=== PATIENT | female | born 1975 | race Caucasian/White ===

== ENCOUNTER → 2017-10-19 | Day surgery (SDC) | payer BC ==
[~2017-10-19] MED LIST: LACTATED RINGER'S 1000 ML INJ 1,000 ML ONE; PROPOFOL 500 MG/50 ML BTL IV ONE
--- NOTE | 2017-10-19 09:40 | GIPROC ---
[facility] [address] [facility], [address] EGD PROCEDURE REPORT EXAM DATE: 10/19/2017 PATIENT NAME: Viktor Washburn MR #: [id number] BIRTHDATE: 1975 ATTENDING: Colin Pham MD ORDER #: [id number] [employer] DIRECTOR: none STATUS: outpatient INDICATIONS: The patient is a 41 yr old female here for an EGD due to follow up on ulcer and history of esophageal reflux. Hx of egd 4 years ago. PROCEDURE PERFORMED: EGD w/ biopsy MEDICATIONS: None and Per Anesthesia. TOPICAL ANESTHETIC: none CONSENT: The patient understands the risks and benefits of the procedure and understands that these risks include, but are not limited to: sedation, allergic reaction, infection, perforation and/or bleeding. Alternative means of evaluation and treatment include, among others: physical exam, x-rays, and/or surgical intervention. The patient elects to proceed with this endoscopic procedure. medical equipment was checked for proper function. Hand hygiene and appropriate measures for infection prevention was taken. After the risks, benefits and alternatives of the procedure were thoroughly explained, Informed consent was verified, confirmed and timeout was successfully executed by the treatment team. The patient was anesthetized with topical anesthesia and the EC-2990i ([id number]) endoscope was introduced through the mouth and advanced to the second portion of the duodenum. Retroflexed views revealed no abnormalities The gastroscope was then slowly withdrawn and removed. No evidence of ulcer . ADVERSE EVENTS: There were no complications. IMPRESSIONS: Retroflexed views revealed no abnormalities RECOMMENDATIONS: Await biopsy results. Biopsy results will not be ready for 7-10 days. If you don't hear from us in two weeks, call our office for biopsy results. PATIENT CONDITION: fair DISPOSITION: Home REPEAT EXAM: NONE Colin Pham MD eSigned: Colin Pham MD 10/19/2017 9:39 AM cc: Colin Pham MD
== END | disposition home or self-care (01) ==
LOC: ESDC 07:58
PROVIDERS: ATTEND Surgery
DX: K21.9 Gastro-esophageal reflux disease without esophagitis (principal); K25.9 Gastric ulcer, unspecified as acute or chronic, without hemorrhage or perforation
CPT/HCPCS: 00731; 43239; 88305; J3010; J7120

== ENCOUNTER 2017-12-11 05:43 | Inpatient (IN) | payer BC ==
[~2017-12-11] VITALS: Ht 162.6 cm; Wt 117.3 kg
[2017-12-11] MEDS ORDERED: METOPROLOL TARTRATE 25 MG TAB PO PRN (06:00)
[2017-12-11] MEDS ORDERED: SODIUM CHLORID 0.9% 500 ML IV PRN (06:00)
[2017-12-11] MEDS ORDERED: POVIDONE IODINE 5% (ANTISEPSIS KIT) 4 APPLICATIONS EACH NARE PRN (06:00)
[2017-12-11] MEDS ORDERED: CHLORHEXIDINE GLUCONATE 2 % 1 PACK (2 CLOTHS) TOPICAL PRN (06:00)
[2017-12-11] MEDS ORDERED: LACTATED RINGER'S 1000 ML IV PRN (06:00)
[2017-12-11] MEDS ORDERED: CETI-1 PO (06:12)
[2017-12-11] MEDS ORDERED: METF500T4 PO (06:12)
[2017-12-11] MEDS ORDERED: ONDANSETRON HCL 4 MG/2 ML VIAL IV PUSH SCH (06:15)
[2017-12-11] MEDS ORDERED: APREPITANT 40 MG CAP PO SCH (06:15)
[2017-12-11] MEDS ORDERED: ceFAZolin 2 GM PREMIX 50 ML IV SCH (06:15)
[2017-12-11] MEDS ORDERED: ACETAMINOPHEN 1000 MG/100 ML 100 ML IV SCH (06:15)
[2017-12-11] MEDS ORDERED: SCOPOLAMINE 1.5 MG PATCH T-DERMAL SCH (06:15)
[2017-12-11] MEDS ORDERED: BUPIVACAINE/EPINEPHRINE 0.25% PF 10 ML VIAL ONE (06:29)
--- NOTE | 2017-12-11 09:43 | HHI.PR ---
Immediate Post Op Note Procedure Date: Dec 11, 2017 Pre Op Diagnosis: morbid obesity, bmi 44, hypercholestremia, gerd, PreDM, RA Post Op Diagnosis: same Surgeon: Colin Pham MD Hand Tufter(s): Dr. Delatorre Procedure: lap RYGB Findings: no leak with methylene blue, redundant GJ tissue resected Complications: none Specimen(s) removed: none Estimated blood loss: 10cc Anesthesia: General Drains: None Patient to: PACU Patient Condition: Good Colin Pham MD Dec 11, 2017 09:43
[2017-12-11] MEDS ORDERED: diphenhydrAMINE HCL ELIXIR 12.5 MG/5 ML CUP PO PRN (09:45)
[2017-12-11] MEDS ORDERED: ONDANSETRON HCL 4 MG/2 ML VIAL IV PUSH PRN (09:45)
[2017-12-11] MEDS ORDERED: ACETAMINOPHEN 325MG/HYDROcodone 7.5MG/15ML UDC PO PRN ×2 (09:45)
[2017-12-11] MEDS ORDERED: Post-op Orders (for Pharmacy) OTHER ONE (09:45)
[2017-12-11] MEDS ORDERED: SODIUM CHLORIDE 0.9% FLUSH 10 ML FLUSH IV FLUSH PRN (09:45)
[2017-12-11] MEDS ORDERED: diphenhydrAMINE HCL 50 MG/ML VIAL IV PUSH PRN (09:45)
[2017-12-11] MEDS ORDERED: ENALAPRILAT 1.25 MG/ML VIAL IV PUSH PRN (09:45)
[2017-12-11] MEDS ORDERED: DO NOT ADM ANY ANTICOAGULANT DRUGS PRN (09:58)
[2017-12-11] MEDS ORDERED: METOCLOPRAMIDE HCL 10 MG/2 ML VIAL ONE (10:16)
[2017-12-11] MEDS ORDERED: metroNIDAZOLE 500 MG INJ 100 ML IV ONE (10:20)
[2017-12-11] MEDS ORDERED: MIDAZOLAM HCL 2 MG/2 ML VIAL ONE (10:24)
[2017-12-11] MEDS ORDERED: MORPHINE SULFATE 4 MG/ML INJ ONE (10:24)
[2017-12-11] MEDS: D5-1/2 NS + KCL 20 MEQ INJ 1,000 ML IV SCH ×2 (10:30→18:38)
[2017-12-11] MEDS ORDERED: METOCLOPRAMIDE HCL 10 MG/2 ML VIAL IV PUSH SCH (11:00)
[2017-12-11] MEDS ORDERED: metroNIDAZOLE 500 MG INJ 100 ML IV SCH (11:00)
[2017-12-11] MEDS: ACETAMINOPHEN 1000 MG/100 ML 100 ML IV SCH ×2 (11:34→18:28)
[2017-12-11] MEDS ORDERED: ePHEDrine/NS 25 MG/5 ML SYRINGE IV ONE (12:00)
[2017-12-11] MEDS ORDERED: NEOSTIGMINE 5 MG/5 ML SYRINGE IV PUSH ONE (12:00)
[2017-12-11] MEDS ORDERED: PHENYLEPH/NS 1000 MCG/10 ML SYR IV ONE (12:00)
[2017-12-11] MEDS ORDERED: GLYCOPYRROLATE 1 MG/5 ML SYRINGE IV PUSH ONE (12:00)
[2017-12-11] MEDS ORDERED: LACTATED RINGER'S 1000 ML INJ 1,000 ML IV ONE (12:00)
[2017-12-11] MEDS ORDERED: ROCURONIUM INJ 50 MG/5 ML SYRINGE IV PUSH ONE (12:00)
[2017-12-11] MEDS ORDERED: PROPOFOL 200 MG/20 ML AMP IV ONE (12:00)
[2017-12-11] MEDS ORDERED: LIDOCAINE HCL 1% PF 5 ML SYRINGE OTHER ONE (12:00)
[2017-12-11 12:57] VITALS: BP 124/79; PULSE 72; RESP 18; TEMP 96.7; O2SAT 100
[2017-12-11] MEDS: PANTOPRAZOLE SOD 40 MG DELAYED RELEASE TAB PO SCH (16:02)
[2017-12-11] MEDS: METOCLOPRAMIDE HCL 10 MG/2 ML VIAL IV PUSH SCH ×2 (16:03→20:16)
[2017-12-11 16:44] VITALS: O2SAT 98
[2017-12-11] MEDS: metroNIDAZOLE 500 MG INJ 100 ML IV SCH (16:47)
[2017-12-11 20:00] VITALS: BP 123/74; PULSE 70; RESP 18; TEMP 98.7; O2SAT 98
[2017-12-11] MEDS: SODIUM CHLORIDE 0.9% FLUSH 10 ML FLUSH IV FLUSH SCH (21:00)
[2017-12-12] VITALS: BP 128/73; PULSE 81; RESP 18; TEMP 99.9; O2SAT 96
[2017-12-12] MEDS: metroNIDAZOLE 500 MG INJ 100 ML IV SCH ×2 (01:32→08:25)
[2017-12-12] MEDS: D5-1/2 NS + KCL 20 MEQ INJ 1,000 ML IV SCH ×2 (03:50→11:51)
[2017-12-12] MEDS: METOCLOPRAMIDE HCL 10 MG/2 ML VIAL IV PUSH SCH ×2 (03:50→08:28)
[2017-12-12] MEDS: ACETAMINOPHEN 1000 MG/100 ML 100 ML IV SCH ×2 (03:51)
[2017-12-12 04:59] VITALS: BP 117/65; PULSE 73; RESP 18; TEMP 98.3; O2SAT 95
[2017-12-12 06:08] LABS: AUTOMATED NEUTROPHIL # 9.5 TH/MM3 (1.8-7.7); BASOPHIL % 0.1 % (0.0-2.0); EOSINOPHIL % 0.1 % (0.0-4.0); HEMATOCRIT 37.9 % (35.0-46.0); HEMOGLOBIN 12.6 GM/DL (11.6-15.3); LYMPH % 11.5 % (9.0-44.0); LYMPHOCYTE # 1.3 TH/MM3 (1.0-4.8); MEAN CELL VOLUME 94.4 FL (80.0-100.0); MEAN CORPUSCULAR HEMOGLOBIN 31.2 PG (27.0-34.0); MEAN CORPUSCULAR HGB CONC 33.1 % (32.0-36.0); MEAN PLATELET VOLUME 9.1 FL (7.0-11.0); MONO % 6.9 % (0.0-8.0); MONOCYTE # 0.8 TH/MM3 (0-0.9); NEUT % 81.4 % (16.0-70.0); PLATELET COUNT 248 TH/MM3 (150-450); RED BLOOD COUNT 4.02 MIL/MM3 (4.00-5.30); RED CELL DISTRIBUTION WIDTH 12.5 % (11.6-17.2); WHITE BLOOD COUNT 11.7 TH/MM3 (4.0-11.0)
[2017-12-12 06:18] LABS: BICARBONATE 21.8 MEQ/L (21.0-32.0); CALCIUM 8.5 MG/DL (8.5-10.1); CREATININE 0.64 MG/DL (0.50-1.00); MAGNESIUM 2.1 MG/DL (1.5-2.5)
--- NOTE | 2017-12-12 07:10 | MP ---
cc: Colin Pham MD DATE OF OPERATION: 12/11/2017 DATE OF PROCEDURE: 12/11/2017 PREOPERATIVE DIAGNOSIS: Morbid obesity, body mass index 44, hypercholesteremia, prediabetes, reflux disease, rheumatoid arthritis. POSTOPERATIVE DIAGNOSIS: Morbid obesity, body mass index 44, hypercholesteremia, prediabetes, reflux disease, rheumatoid arthritis. PROCEDURE PERFORMED: Laparoscopic Arnel-en-Y gastric bypass. SURGEON: Colin Pham MD FIRE EXTINGUISHER CHARGER: Dr. Sohail Griffin needed due to complexity of laparoscopic case. Dr. Griffin assisted in chemical control and retraction. ANESTHESIA: GETA. INTRAVENOUS FLUIDS: See anesthesia. ESTIMATED BLOOD LOSS: 10 mL. DRAINS: None. COMPLICATIONS: None. FINDINGS: No evidence of leak with the methylene blue. Small redundant tissue of gastrojejunostomy resected. Arnel limb of 40 cm and a biliopancreatic limb of 100 cm. SPECIMENS: None. INDICATIONS FOR PROCEDURE: The patient is a 42-year-old female who presents with morbid obesity, BMI of 44, multiple comorbidities including prediabetes, reflux, arthritis and hypercholesterolemia. She had multiple attempts at weight loss without success. Therefore, decision was made for bariatric surgery. Discussed in detail. DETAILS OF THE PROCEDURE: The patient was taken to the operating room and placed in supine position. She was prepped and draped in usual sterile fashion after induction of general endotracheal anesthesia. Brief timeout done, stating correct patient, procedure, surgical site. We were all in agreement with this. Attention first directed to 18 cm from the xiphoid. Local anesthetic injected, Marcaine with epinephrine. A 5 mm incision was made just off the left of midline. A 5 mm Optiview port was done under direct visualization. Pneumoperitoneum was induced. This was done to 15 mm pneumoperitoneum. On visual inspection, no evidence of injury. Several other trocars were placed. A right upper quadrant 5 mm which would be used for liver retraction and 12 mm right lower quadrant, placed, 12 mm left lower quadrant port placed and a 5 mm left upper quadrant placed. This was all done under direct visualization prior to her placement of injection and local anesthetic. Attention was directed to the omentum. Electro Bovie cautery was used, harmonic scalpel to ligate the omentum off the transverse colon. This was done in order to split the omentum. This was done up to the hepatic flexure. Next, the ligament of Treitz was identified and walked 40 cm distal. The small bowel was divided using [place] Flex Endo GI stapler with Seamguard. Next, a clip was placed in the proximal portion of the limb. The distal limb was further walked another distance of 100 cm distally. Two enterotomies were created on the anterior mesenteric border of the biliopancreatic limb, in the previously transected portion of the limb. This was done in order to fashion a jejunojejunostomy. Linear ROCIO stapler was used to create a zicyntr-txv-[id number] layer. This was done with a side stapling manner. Next, the common enterotomy was grasped with [place] graspers and another Endo-ROCIO stapler was placed, used to approximate the conjoint enterotomy. Small clips were placed at the staple line to achieve hemostasis. Next, we used 2-0 silk, the redundant bowel was sutured with a Lapra-Ty. Once we finished this, the patient was placed in reverse Trendelenburg and the left side was placed up. Santa-Flex retractor was placed. The upper lobe of the liver was retracted. The angle of His was taken down using Harmonic scalpel. A 5 mm camera port was placed approximately 5 cm from the GE junction to the lesser curvature. The sac was entered using Harmonic scalpel and blunt dissection. A linear Endo-ROCIO stapler was used to transect horizontally using a blue load stapler. We did confirm no NG tube or esophageal probes were placed. Further pouch was created by heading cephalad, firing 2 more Endo-ROCIO staple loads near the angle of His. This was divided in the stomach completely. Next, gastrotomy was created using hook Harmonic and hook electric Bovie cautery. An enterotomy was placed to the Arnel limb, the jejunal side as well. The Endo-ROCIO stapler was used to staple and approximate the jejunal limb of the gastric pouch approximately 2 cm. There was noted to be some redundancy upon doing this. Therefore, the mesentery was taken down for another centimeter and a half and this extra redundant tissue AK would be noted as a candy cane portion was transected closer proximal to the gastrojejunostomy. Next, gastric pouch was approximated using 2-0 Polysorb in a running fashion to approximate the enterotomy. Mid-way through the suture was cut and 18-Swazi OG tube was advanced past the anastomosis. The defect was then closed with a second running 2-0 Polysorb suture. These were tied together, creating a single layer. Single layer was then tested with methylene blue without evidence of leak. Next, a second layer was run using Lapra-Ty in order to reinforce and reapproximate the gastrojejunostomy. Next, Evicel was placed over the gastrojejunostomy and jejunojejunostomy on the staple lines. Next, the defects were closed to prevent internal hernias, as this was done with a permanent 2-0 Surgidac. Minimal bleeding point noted at the Surgidac site. Next, the two 12 mm port sites were removed. The liver retractor was removed as well. Pneumoperitoneum was removed. OG tube was removed. Subcuticular sutures were done at all port sites with 4-0 Monocryl. Sterile dressings were then placed. The patient tolerated the procedure well. There were no intraoperative complications. All lap and instrument counts were correct at the end of the procedure. The patient was extubated and taken stable to PACU. MD JACQUES Merino/MARK , 04:20 PM , 06:22 PM
[2017-12-12 08:00] VITALS: BP 139/84; PULSE 74; RESP 18; TEMP 98.4; O2SAT 96
[2017-12-12] MEDS: PANTOPRAZOLE SOD 40 MG DELAYED RELEASE TAB PO SCH (08:26)
[2017-12-12] MEDS: SODIUM CHLORIDE 0.9% FLUSH 10 ML FLUSH IV FLUSH SCH (08:31)
[2017-12-12] MEDS ORDERED: METOCLOPRAMIDE HCL 10 MG/2 ML VIAL IV PUSH PRN (09:45)
--- NOTE | 2017-12-12 09:59 | HHI.PR ---
Subjective Subjective Notes C/O some mild nausea but well controlled by antiemetics Pain well controlled Objective Vitals/I&O Vital Signs Date Time Temp Pulse Resp B/P (MAP) Pulse Ox O2 Delivery O2 Flow Rate FiO2 12/12/17 08:00 98.4 74 18 139/84 (102) 96 12/11/17 21:27 21 12/11/17 12:30 Nasal Cannula 2 Labs Laboratory Tests Test 12/12/17 04:53 White Blood Count 11.7 Red Blood Count 4.02 Hemoglobin 12.6 Hematocrit 37.9 Mean Corpuscular Volume 94.4 Mean Corpuscular Hemoglobin 31.2 Mean Corpuscular Hemoglobin Concent 33.1 Red Cell Distribution Width 12.5 Platelet Count 248 Mean Platelet Volume 9.1 Neutrophils (%) (Auto) 81.4 Lymphocytes (%) (Auto) 11.5 Monocytes (%) (Auto) 6.9 Eosinophils (%) (Auto) 0.1 Basophils (%) (Auto) 0.1 Neutrophils # (Auto) 9.5 Lymphocytes # (Auto) 1.3 Monocytes # (Auto) 0.8 Eosinophils # (Auto) 0.0 Basophils # (Auto) 0.0 CBC Comment DIFF FINAL Differential Comment Blood Urea Nitrogen 3 Creatinine 0.64 Random Glucose 125 Calcium Level 8.5 Magnesium Level 2.1 Sodium Level 135 Potassium Level 4.0 Chloride Level 104 Carbon Dioxide Level 21.8 Anion Gap 9 Estimat Glomerular Filtration Rate 102 Cardiovascular: Regular Lungs: Clear Abdomen: Post-op tenderness Extremities: Perfused Wound Wound : Wound Location: Abdomen Appearance: Clean & Dry A/P Assessment and Plan 42yo F POD#1 Laparoscopic RnY -Continue to increase fluids as tolerated -Continue with frequent ambulation Attending Statement patient seen at bedside slow progress but doing well dvt ppx bariatric liquid diet oob pain control Attestation The exam, history, and the medical decision-making described in the above note were completed with the assistance of the mid-level provider. I reviewed and agree with the findings presented. I attest that I had a [id number] encounter with the patient on the same day, and personally performed and documented my assessment and findings in the medical record. Virgil Paul Dec 12, 2017 09:59 Colin Pham MD Dec 17, 2017 06:20
[2017-12-12] MEDS ORDERED: PNEUMOCOCCAL POLYVALENT INJ 25 MCG/0.5 ML SYR IM ONE (10:00)
[2017-12-12] MEDS ORDERED: INFLUENZA VIRUS VACCINE (QUADRIVALENT) 0.5 ML SYR IM ONE (10:00)
[2017-12-12 12:00] VITALS: BP 134/73; PULSE 74; RESP 18; TEMP 96.8; O2SAT 97
[2017-12-12 16:00] VITALS: BP 140/76; PULSE 65; RESP 18; TEMP 98.8; O2SAT 97
== END 2017-12-12 18:30 | disposition home or self-care (01) | DRG 621 ==
LOC: HSDI 05:43 → N07B 12:49
PROVIDERS: ADMIT Surgery; ATTEND Surgery
PROC: 0D164ZA Bypass Stomach to Jejunum, Percutaneous Endoscopic Approach (ICD-10-PCS; principal; 2017-12-11 07:08)
DX: E66.01 Morbid (severe) obesity due to excess calories (principal); K21.9 Gastro-esophageal reflux disease without esophagitis; M06.9 Rheumatoid arthritis, unspecified; R73.03 Prediabetes; E78.00 Pure hypercholesterolemia, unspecified; Z68.41 Body mass index [BMI] 40.0-44.9, adult; Z23 Encounter for immunization
CPT/HCPCS: 80048; 82948; 83735; 85025; 90686; 90732; 94150; J0131; J0690; J2250; J2270; J2370; J2405; J2710; J2765; J3010; J3480; J7120; J8501; Q2038